=== PATIENT | male | born 1990 | race Caucasian/White ===

== ENCOUNTER 2016-10-10 04:32 | Emergency (ER) | payer MEDICAID, OTHER, SELFPAY ==
[~2016-10-10] VITALS: Ht 172.7 cm; Wt 77.1 kg
[2016-10-10 04:56] VITALS: BP 123/62
[2016-10-10] MEDS ORDERED: TETANUS/DIPHTHERIA TOX ADSORB ADULT 0.5ML SYR/VIAL (90714) IM ONE (05:30)
== END 2016-10-10 06:57 | disposition home or self-care (01) ==
LOC: EDBD 04:32 → M ED 05:31
DX: F10.10 Alcohol abuse, uncomplicated (principal); S01.03XA Puncture wound without foreign body of scalp, initial encounter; W22.8XXA Striking against or struck by other objects, initial encounter; Y92.099 Unspecified place in other non-institutional residence as the place of occurrence of the external cause; Y93.89 Activity, other specified; Y99.9 Unspecified external cause status